=== PATIENT | female | born 1960 | race Caucasian/White ===

== ENCOUNTER → 2017-04-20 | Outpatient (CLI) | payer BC, MEDICARE ==
--- NOTE | 2017-04-20 18:17 | Diagnostic Imaging Report ---
PROCEDURE: US carotid duplex, bilateral. TECHNIQUE: Multiple real-time grayscale images were obtained over the carotid arteries in various projections, bilaterally. Additional duplex Doppler and color Doppler images were also obtained. INDICATION: Chronic pain syndrome. Left-sided carotid bruit. FINDINGS: Examination shows minimal atherosclerotic disease with no hemodynamically significant stenosis or vessel irregularity seen. There is less than 10% stenosis. There is antegrade flow in all vessels. IMPRESSION: Minimal disease. No significant abnormality is seen. Dictated by: Dictated on workstation # [id number]
== END ==
LOC: RAD 17:50
PROVIDERS: ATTEND Family Medicine
DX: G89.4 Chronic pain syndrome (principal); M54.5 Low back pain; E78.1 Pure hyperglyceridemia; E06.3 Autoimmune thyroiditis
CPT/HCPCS: 93880